=== PATIENT | female | born 1940 | race Two or more races ===

== ENCOUNTER 2024-10-05 07:15 | Outpatient (CLI) | payer OTHER | END 2024-10-05 07:17 | disposition home or self-care (01) | LOC: NUCLEAR 07:15 | PROVIDERS: ATTEND General Practice | DX: E04.2 Nontoxic multinodular goiter (principal) | CPT/HCPCS: 78013; A9512 ==

== ENCOUNTER 2025-03-20 10:55 | Outpatient (CLI) | payer OTHER | END 2025-03-20 10:57 | disposition home or self-care (01) | LOC: SONOGRAMA 10:55 | PROVIDERS: ATTEND Pathology Anatomic Pathology | DX: D34 Benign neoplasm of thyroid gland (principal); E07.89 Other specified disorders of thyroid; E04.2 Nontoxic multinodular goiter ==